=== PATIENT | male | born 1965 | race Caucasian/White ===

== ENCOUNTER 2021-12-28 09:23 | Emergency (ER) | payer OTHER ==
[~2021-12-28] VITALS: Ht 172.7 cm; Wt 88.0 kg
[~2021-12-28 09:23] MED LIST: ALLOPURINOL100 MG PO; ULTRAM 50MG50 MG PO
[2021-12-28] MEDS ORDERED: KETOROLAC TROMETHAMINE 30 MG/ML VIAL IM STA (09:39)
[2021-12-28] MEDS ORDERED: LIDOCAINE 4% PATCH TP STA (09:39)
[2021-12-28] MEDS ORDERED: LIDOCAINE1 EAC1 EXT (09:41)
[2021-12-28] MEDS ORDERED: METHOCARBAMOL750 MG PO (09:44)
[2021-12-28] MEDS ORDERED: DIAZEPAM INJ 5 MG/ML 2 ML IM ONE (09:45)
== END 2021-12-28 09:55 | disposition home or self-care (01) ==
LOC: ER 09:30
DX: S29.012A Strain of muscle and tendon of back wall of thorax, initial encounter (principal); X50.0XXA Overexertion from strenuous movement or load, initial encounter; Y93.89 Activity, other specified; M10.9 Gout, unspecified
CPT/HCPCS: 93005; 99282; J1885; J3360

== ENCOUNTER → 2025-03-13 | Day surgery (SDC) | payer BC ==
[2025-03-06 13:54] LABS: BASOPHILS % 1.2 % (0.0-1.0); EOSINOPHILS % 4.9 % (0.0-6.0); LYMPHOCYTES % 22.2 % (18.0-39.1); MONOCYTES % 7.5 % (4.4-11.3); NEUTROPHILS % 63.9 % (38.7-80.0); RED CELL DISTRIBUTION WIDTH 12.7 % (11.7-14.4)
[2025-03-06 14:08] LABS: EST GLOMERULAR FILTRATION RATE 86.0 ML/MIN (>=60)
[~2025-03-13] MED LIST changes: +ALEVE220 M1; +ASPIRIN81 MG PO; +CARVEDILOL6.25 MG IO; +DEXAMETHASONE SOD PHOS INJ 4 MG/ML SDV ONE; +EFFIENT10 MG PO; +FEBUXOSTAT80 MG PO; +FELODIPINE ER5 MG PO; +HYDROCODONE PO; +JARDIANCE10 MG PO; +LACTATED RINGER'S 1,000 ML ONE; +LIDOCAINE HCL 2% LOCAL INJ 5 ML SDV VIAL INJ ONE; +LIDOCAINE1 EAC1 EXT; +LIPITOR20 MG PO; +LOSARTAN POTAS100 MG PO; +LOSARTAN POTASS25 MG PO; +MAGNESIUM PO; +METFORMIN HCL500 MG PO; +METHOCARBAMOL750 MG PO; +ONDANSETRON HCL INJ 2MG/ML 2ML 2 MG/ML VIAL ONE; +PROPOFOL IV EMULSION 10 MG/ML 20 ML VIAL ONE; +ROSUVASTATIN PO; +SPIRONOLACTONE25 MG PO; +[UNRECOGNIZED DRUG - OTHER] PO
[2025-03-13 08:13] VITALS: TEMP 97.5
[2025-03-13] MEDS: CEFTRIAXONE 1 GM VIAL ONE (08:31)
[2025-03-13 09:20] VITALS: BP 116/68; PULSE 61; RESP 16; O2SAT 95
== END | disposition home or self-care (01) ==
LOC: OR 05:19
PROVIDERS: ATTEND Orthopaedic Surgery
DX: M75.112 Incomplete rotator cuff tear or rupture of left shoulder, not specified as traumatic (principal); M65.812 Other synovitis and tenosynovitis, left shoulder; M25.812 Other specified joint disorders, left shoulder; E11.9 Type 2 diabetes mellitus without complications; I11.9 Hypertensive heart disease without heart failure; I25.2 Old myocardial infarction; E78.00 Pure hypercholesterolemia, unspecified; Z79.02 Long term (current) use of antithrombotics/antiplatelets; Z79.891 Long term (current) use of opiate analgesic; Z01.810 Encounter for preprocedural cardiovascular examination; Z01.812 Encounter for preprocedural laboratory examination; Z79.84 Long term (current) use of oral hypoglycemic drugs
CPT/HCPCS: 29826; 29827; 29828; 36415; 71046; 80048; 85025; 93005; C1713 ×2; C1763; J0690; J0696; J1100; J2003; J2405; J2704; J7121